=== PATIENT | female | born 1990 | race Caucasian/White ===

== ENCOUNTER → 2016-10-03 | Outpatient (CLI) | payer BC ==
--- NOTE | 2016-10-03 10:35 | US ---
EXAMINATION TYPE: US OB <= 14 wk fetus DATE OF EXAM: 10/03/2016 9:16 AM COMPARISON: NONE CLINICAL HISTORY: Confirm dates Z36. EXAM PERFORMED: OB TA and TV endovaginal scanning performed for better evaluation of the EXAM MEASUREMENTS: GESTATIONAL AGE / DATING Physician Established: ( 8weeks/ 2days) EDC: 05/13/2017 Dates by LMP: unknown Dates by First Scan: NEGATIVE NOTCHER Dates by Current Scan for: (7 weeks/4 days) EDC: 05/18/2017 MATERNAL ANATOMY Uterus: 9.6 x 7.9 x 5.9cm Right Ovary: not seen due to bowel gas Left Ovary: not seen due to bowel gas Post CDS / Adnexa: wnl Presence of free fluid: no Presence of corpus luteal cyst: not seen Presence of subchorionic bleed: no GESTATION / SURVEY CRL: 1.4cm (7 weeks/3 days) MSD: 2.4cm (7 weeks/4 days) Yolk Sac (normal less than 6mm): 0.2 Heart Rate: 0 bpm IUP: Demise Date of LMP: unknown Beta HcG (if available): not available grayscale, color Doppler imaging performed. No heart ac tivity was evident. Gestational sac somewhat irregular. IMPRESSION: Findings suggest demise, follow-up as indicated
[2016-10-03 10:37] LABS: CH 30.5; CHCM 32.9; HCT 40.6 % (34.0-46.0); HDW 2.25; HGB 13.4 gm/dL (11.4-16.0); MCH 30.8 pg (25.0-35.0); MCHC 33.1 g/dL (31.0-37.0); MCV 93.1 fL (80.0-100.0); Mean Platelet Volume 7.2; RBC 4.36 m/uL (3.80-5.40); RDW 12.2 % (11.5-15.5); WBC 7.1 k/uL (3.8-10.6)
[2016-10-03 11:00] LABS: Glucose 78 mg/dL (74-99); Non-African American GFR(MDRD) >60 (>60 ml/min/1.73 sqM)
[2016-10-03 11:29] LABS: Hepatitis B Surface Ag Index 0.09
== END | disposition home or self-care (01) ==
LOC: RADUSWWP 08:42
PROVIDERS: ATTEND Obstetrics & Gynecology
DX: Z36 Encounter for antenatal screening of mother (principal); Z34.81 Encounter for supervision of other normal pregnancy, first trimester; Z3A.08 8 weeks gestation of pregnancy
CPT/HCPCS: 36415; 76801; 76817; 82565; 82947; 84702; 85027; 86762; 86780; 86850; 86900; 86901; 87340

== ENCOUNTER → 2016-10-05 | Outpatient (CLI) | payer BC, OTHER | END | disposition home or self-care (01) | LOC: LABWHC1 12:48 | PROVIDERS: ATTEND Obstetrics & Gynecology | DX: Z34.81 Encounter for supervision of other normal pregnancy, first trimester (principal); Z3A.00 Weeks of gestation of pregnancy not specified | CPT/HCPCS: 36415; 84702 ==

== ENCOUNTER 2016-10-17 11:23 | Day surgery (SDC) | payer BC, OTHER ==
[2016-10-16 13:15] VITALS: BMI 24.0
--- NOTE | 2016-10-17 09:01 | P.HPOB ---
History of Present Illness H&P Date: 10/17/16 Chief Complaint: missed 26 year old presents for suction D&C due to missed . She had an US showing a 7 week demise and her bhcg is dropping. Review of Systems All systems: negative Constitutional: Denies chills, Denies fever Eyes: denies blurred vision, denies pain Ears, nose, mouth and throat: Denies headache, Denies sore throat Cardiovascular: Denies chest pain, Denies shortness of breath Respiratory: Denies cough Gastrointestinal: Denies abdominal pain, Denies diarrhea, Denies nausea, Denies vomiting Genitourinary: Denies dysuria, Denies hematuria Musculoskeletal: Denies myalgias Integumentary: Denies pruritus, Denies rash Neurological: Denies numbness, Denies weakness Psychiatric: Denies anxiety, Denies depression Endocrine: Denies fatigue, Denies weight change Past Medical History Past Medical History: No Reported History Additional Past Medical History / Comment(s): bipolar History of Any Multi-Drug Resistant Organisms: None Reported Past Surgical History: No Surgical Hx Reported Additional Past Surgical History / Comment(s): oral surgery Past Anesthesia/Blood Transfusion Reactions: Family History of Problems w/ Anesthesia Additional Past Anesthesia/Blood Transfusion Reaction / Comment(s): mom PONV Past Psychological History: Anxiety, Depression Smoking Status: Former smoker Past Alcohol Use History: Occasional Additional Past Alcohol Use History / Comment(s): quit smoking 09/25/15, started smoking age 17, < 1/2 PPD Past Drug Use History: None Reported - Past Family History Mother Family Medical History: No Reported History Father Family Medical History: Deep Vein Thrombosis (DVT) Medications and Allergies Home Medications Medication Instructions Recorded Confirmed Type Ibuprofen [Motrin] 600 mg PO BID 10/16/16 10/16/16 History Allergies Allergy/AdvReac Type Severity Reaction Status Date / Time No Known Allergies Allergy Verified 10/16/16 13:09 Exam Osteopathic Statement: *. No significant issues noted on an osteopathic structural exam other than those noted in the History and Physical/Consult. HEart: RRR Lungs: CTAB Abdomen: soft, nontender Extremeties: neg evan's Assessment and Plan (1) Missed Status: Acute Plan: 1. Suction D&C
[~2016-10-17 11:23] MED LIST: DEXAMETHASONE SOD PHOSPHATE 10 MG/ML 1 ML VIAL IV ONE; HYDROmorphone 1 MG/ML 1 ML SYRINGE IVP PRN; LACTATED RINGERS 1,000 ML IV SCH; MIDAZOLAM 2 MG/2 ML VIAL IV PRN; ONDANSETRON 4 MG/2 ML VIAL IVP ONE; Pre Op ABX Message 1 EACH MISC MISCELLANE ONE; SCOPOLAMINE 1.5MG/72HR PATCH TRANSDERM ONE
[2016-10-17] MEDS: LIDOCAINE 1% 20 ML VIAL (10MG/ML) FOR IV START IV ONE ×2 (11:39→11:40)
[2016-10-17] MEDS ORDERED: MIDAZOLAM 2 MG/2 ML VIAL ONE (12:54)
[2016-10-17] MEDS ORDERED: PROPOFOL 10 MG/ML 20 ML VIAL IV ONE (12:54)
[2016-10-17] MEDS ORDERED: fentaNYL (PF) 50 MCG/ML 2 ML AMP ONE (12:54)
[2016-10-17] MEDS ORDERED: LIDOCAINE 1% INJ 10MG/ML (20 ML MDV) ONE (12:54)
--- NOTE | 2016-10-17 13:15 | P.OP ---
Date of Procedure: 10/17/16 Preoperative Diagnosis: 1. Missed Postoperative Diagnosis: 1. Missed Procedure(s) Performed: Suction D&C Anesthesia: MAC Surgeon: Danielle Swan Estimated Blood Loss (ml): 300 IV fluids (ml): 300 Urine output (ml): 150 Pathology: other (Products of conception) Condition: stable Disposition: PACU Description of Procedure: Patient taken the operating room where general anesthesia was obtained without difficulty. She is prepped and draped in normal sterile fashion dorsal lithotomy position, legs placed in the Miguel stirrups. Bladder was drained of all urine. Weighted speculum placed in the vagina and the anterior lip of the cervix was grasped with a single-tooth tenaculum. Cervix was dilated to #10 Hegar dilator. A #10 curved suction curet was introduced into the uterus and her . The suction curet was passed several times to obtain a moderate amount of blood and tissue. Sharp curette was gently used to ensure all tissue had been removed. The suction curet was again passed a few more times to ensure that all blood was removed. Hemostasis was assured. All instruments were removed from the vagina. Patient tolerated the procedure well. Sponge and instrument counts correct 2. She was taken to recovery room in stable condition.
[2016-10-17] MEDS ORDERED: KETOROLAC 30 MG/ML 1 ML VIAL IVP ONE (13:30)
[2016-10-17 13:35] VITALS: TEMP 98
[2016-10-17 13:53] VITALS: RESP 18
[2016-10-17 14:28] VITALS: PULSE 70
[2016-10-17 14:48] VITALS: BP 93/65
== END 2016-10-17 14:50 | disposition home or self-care (01) ==
LOC: OR 11:23
PROVIDERS: ATTEND Obstetrics & Gynecology
DX: O02.1 Missed abortion (principal); Z79.1 Long term (current) use of non-steroidal anti-inflammatories (NSAID); Z87.891 Personal history of nicotine dependence
CPT/HCPCS: 88305; 59820; J2250; J1100; J2405; J2001; J3010; J1885; J2704

== ENCOUNTER 2018-08-20 11:02 | Outpatient (CLI) | payer BC ==
[2018-08-20 11:30] VITALS: BP 112/69; PULSE 88; RESP 18; TEMP 98.2
[2018-08-20 13:16] LABS: Appearance,Urine Clear (Clear); Bacteria,Urine Rare /hpf; Bilirubin,Urine Negative (Negative); Blood,Urine Negative (Negative); Color,Urine Light Yellow; Glucose,Urine (UA) Negative (Negative); Ketones,Urine Negative (Negative); Leukocyte Esterase,Urine Trace (Negative); Nitrite,Urine Negative (Negative); PH, Urine 7.5 (5.0-8.0); Protein,Urine Negative (Negative); RBC,Urine 1 /hpf (0-5); Specific Gravity,Urine 1.004 (1.001-1.035); Squamous Epithelial Cell,Urine 2 /hpf (0-4); Urobilinogen,Urine <2.0 mg/dL (<2.0); WBC,Urine 1 /hpf (0-5)
[2018-08-20 13:34] LABS: Basophils % (A) 0 %; Eosinophils # (A) 0.1 k/uL (0-0.7); Eosinophils % (A) 1 %; HCT 38.4 % (34.0-46.0); HGB 12.7 gm/dL (11.4-16.0); Lymphocytes # (A) 1.5 k/uL (1.0-4.8); Lymphocytes % (A) 17 %; MCH 29.9 pg (25.0-35.0); MCHC 33.1 g/dL (31.0-37.0); MCV 90.3 fL (80.0-100.0); Mean Platelet Volume 7.6; Monocytes # (A) 0.3 k/uL (0-1.0); Monocytes % (A) 4 %; Neutrophils # (A) 6.4 k/uL (1.3-7.7); Neutrophils % (A) 75 %; Platelet Count 254 k/uL (150-450); RBC 4.25 m/uL (3.80-5.40); RDW 14.1 % (11.5-15.5); WBC 8.6 k/uL (3.8-10.6)
[2018-08-20 13:47] LABS: ALT 23 U/L (9-52); AST 19 U/L (14-36); Blood Urea Nitrogen 9 mg/dL (7-17); LDH 415 U/L (313-618); Uric Acid 4.8 mg/dL (3.7-7.4)
--- NOTE | 2018-08-23 07:54 | P.MSEPDOC ---
Presenting Problems - Arrival Data Date of Arrival on Unit: 08/20/18 Time of Arrival on Unit: 11:00 Mode of Transport: Ambulatory - Complaint OB-Reason for Admission/Chief Complaint: Headache, Visual Disturbances, Dizziness Medical History - Information : 3 Para: 1 Term: 1 : 0 Abortions: Spontaneous or Elective: 1 Number of Living Children: 1 - Gestational Age Gestational Age by LEO (wks/days): 40 Weeks and 4 Days Review of Systems - Review of Systems Constitutional: No problems Breast: No problems ENT: No problems Cardiovascular: No problems Respiratory: No problems Gastrointestinal: No problems Genitourinary: No problems Musculoskeletal: No problems Neurological: Dizziness Skin: No problems Vital Signs - Temperature Temperature: 98.2 F Temperature Source: Oral - Pulse Pulse Oximetery Pulse Rate: 88 Pulse Assessment Method: Automatic Cuff - Respirations Respiratory Rate: 18 O2 Sat by Pulse Oximetry: 97 - Blood Pressure Right Arm Sitting Blood Pressure: 112/69 Blood Pressure Mean: 83 Blood Pressure Source: Automatic Cuff Medical Screen Scoring (Pre) - Cervical Exam Dilation: Exam Deferred Effacement: Exam Deferred Membranes: Intact - Uterine Contractions Frequency: > 5 minutes apart = 1 Duration: N/A Intensity: N/A - Maternal Vital Signs Maternal Temperature: N/A Maternal Blood Pressure: N/A Signs of Preeclampsia: Headache = 1, Visual Disturbance = 1, Edema of Face = 4 Maternal Respirations: N/A - Pain Assessment Pain Location and Character: Head Pain Scale Used: Numeric (1 - 10) Pain Intensity: 4 Pain Management Goal: 0 Pain Description: *Acute, Stabbing Pain Radiation Location: no Pain Frequency: Intermittent Pain Duration: 2 Pain Duration Units: Hours Pain Behavior: None Exhibited Pain Aggravating Factors: None Non-Pharmacological Interventions: Environmental Control, Reduce Environmental Stimuli - Maternal Trauma Maternal Trauma: N/A - Assessment Baseline FHR: 135 Heart Rate - NICHD Category: Category I (Normal) = 0 NST: Reactive Position: N/A Station: N/A - Total Score Total Score (Pre): 7 - Level of Risk Level of Risk: Medium (6-9) Physician Notification (Pre) - Physician Notified Physician Notified Date: 08/20/18 Physician Notified Time: 12:45 Physician/Practitioner Notifed:: Dr Valdez Spoke With: Dr Valdez New Order Received: Yes - Notification Comment Comment: 1245 Dr Valdez in department, report given ,reviewed tracing, orders received. Physician Notification (Post) - Physician Notified Physician Notified Date: 08/20/18 Physician Notified Time: 14:10 Physician/Practitioner Notified:: Dr Valdez Spoke With: Dr Valdez New Order Received: Yes Disposition - Disposition OB Disposition: Physician follow up in office, Discharge to home, Written follow up instructions reviewed Discharge Date: 08/20/18 Discharge Time: 14:20 I agree with the RN Medical Screening Exam: Yes Risk & Benefit of care provided described in d/c instruction: Yes Diagnosis: RELATED CONDITIONS, UNSPECIFIED, THIRD TRIMESTER
== END 2018-08-20 14:20 | disposition home or self-care (01) ==
LOC: FBPOP 11:02
PROVIDERS: ATTEND Obstetrics & Gynecology
DX: O26.93 Pregnancy related conditions, unspecified, third trimester (principal); Z3A.40 40 weeks gestation of pregnancy
CPT/HCPCS: 59025; 81001; 82565; 83615; 84450; 84460; 84520; 84550; 85025; 99215

== ENCOUNTER 2018-08-21 19:40 | Inpatient (IN) | payer BC ==
[2018-08-21] MEDS ORDERED: TERBUTALINE 1 MG/ML VIAL SQ PRN (20:03)
[2018-08-21] MEDS ORDERED: METHYLERGONOVINE 0.2 MG/ML 1 ML AMP IM PRN (20:03)
[2018-08-21] MEDS ORDERED: OXYTOCIN 10 UNIT/ML 1 ML VIAL IM PRN (20:03)
[2018-08-21] MEDS ORDERED: CARBOPROST TROMETHAMINE 250 MCG/ML 1 ML AMP IM PRN (20:03)
[2018-08-21] MEDS ORDERED: LIDOCAINE 0.5% (PF) 5 MG/ML (50 ML SDV) SQ PRN (20:03)
[2018-08-21] MEDS ORDERED: AMPICILLIN 2,000 MG in SODIUM CHLORIDE 0.9% 100 ML IVPB STA (20:09)
[2018-08-21] MEDS: LACTATED RINGERS 1,000 ML IV SCH ×3 (20:32→22:22)
[2018-08-21 20:56] VITALS: BMI 33.7
[2018-08-21] MEDS ORDERED: fentaNYL (PF) 50 MCG/ML 5 ML AMP ONE (21:01)
[2018-08-21] MEDS ORDERED: ROPIVACAINE 5MG/ML 20ML VIAL ONE (21:01)
[2018-08-21] MEDS ORDERED: SODIUM CHLORIDE 0.9% 100 ML BAG ONE (21:01)
[2018-08-21 22:43] LABS: RDW 14.1 % (11.5-15.5)
[2018-08-21 22:44] LABS: Basophils % (A) 0 %; Eosinophils # (A) 0.1 k/uL (0-0.7); Eosinophils % (A) 1 %; HCT 39.8 % (34.0-46.0); HGB 13.5 gm/dL (11.4-16.0); Lymphocytes # (A) 1.5 k/uL (1.0-4.8); Lymphocytes % (A) 17 %; Monocytes # (A) 0.5 k/uL (0-1.0); Monocytes % (A) 5 %; Neutrophils # (A) 6.8 k/uL (1.3-7.7); Neutrophils % (A) 75 %; Platelet Count 261 k/uL (150-450); RBC 4.37 m/uL (3.80-5.40); WBC 9.1 k/uL (3.8-10.6)
--- NOTE | 2018-08-21 23:09 | P.MSEPDOC ---
Presenting Problems - Arrival Data Date of Arrival on Unit: 08/21/18 Time of Arrival on Unit: 20:00 Mode of Transport: Wheelchair - Complaint OB-Reason for Admission/Chief Complaint: Possible Onset of Labor Comment: contractions since 1400, getting stronger, pt breathing thru them Medical History - Information : 3 Para: 1 Term: 1 : 0 Abortions: Spontaneous or Elective: 1 Number of Living Children: 1 - Gestational Age Gestational Age by LEO (wks/days): 40 Weeks and 5 Days - History Complications: GBS+ Review of Systems - Review of Systems Constitutional: No problems Breast: No problems ENT: No problems Cardiovascular: No problems Respiratory: No problems Gastrointestinal: No problems Genitourinary: No problems Musculoskeletal: No problems Neurological: No problems Skin: No problems Vital Signs - Temperature Temperature: 96.7 F Temperature Source: Temporal Artery Scan - Pulse Right Brachial Pulse Rate: 109 Pulse Assessment Method: Automatic Cuff - Respirations Respiratory Rate: 18 Oxygen Delivery Method: Room Air - Blood Pressure Right Arm Blood Pressure: 134/84 Blood Pressure Mean: 100 Blood Pressure Source: Automatic Cuff Medical Screen Scoring (Pre) - Cervical Exam Dilation: 4-7 cm = 2 Effacement: More than 50% = 2 Membranes: Intact - Uterine Contractions Frequency: > 5 minutes apart = 1 Duration: > 40 seconds = 2 Intensity: N/A - Maternal Vital Signs Maternal Temperature: N/A Maternal Blood Pressure: N/A Signs of Preeclampsia: N/A Maternal Respirations: N/A - Pain Assessment Pain Location and Character: Abdomen Pain Scale Used: Numeric (1 - 10) Pain Intensity: 7 Pain Description: *Acute, Cramping, Pressure Pain Radiation Location: none Pain Frequency: Intermittent Pain Duration: 2 Pain Duration Units: Hours Pain Behavior: Vocalization Pain Aggravating Factors: Contractions - Maternal Trauma Maternal Trauma: N/A - Assessment Baseline FHR: 130 Heart Rate - NICHD Category: Category I (Normal) = 0 NST: Reactive Position: N/A Station: N/A - Total Score Total Score (Pre): 7 - Level of Risk Level of Risk: Medium (6-9) Physician Notification (Pre) - Physician Notified Physician Notified Date: 08/21/18 Physician Notified Time: 20:03 Physician/Practitioner Notifed:: Dr. Swan Spoke With: Dr. Swan New Order Received: Yes - Notification Comment Comment: admit for labor Disposition - Disposition OB Disposition: Admit, LDRP Suite I agree with the RN Medical Screening Exam: Yes Risk & Benefit of care provided described in d/c instruction: Yes Diagnosis: ENCOUNTER FOR FULL-TERM UNCOMPLICATED DELIVERY
--- NOTE | 2018-08-21 23:09 | P.HPOB ---
History of Present Illness H&P Date: 08/21/18 Chief Complaint: normal labor 28 year old presents at 40 weeks 5 days in labor. Her cervix is 5/90/-2. She is kristin irregularly. heart tones 130-135 with moderate variability and reactive. Review of Systems All systems: negative Constitutional: Denies chills, Denies fever Eyes: denies blurred vision, denies pain Ears, nose, mouth and throat: Denies headache, Denies sore throat Cardiovascular: Denies chest pain, Denies shortness of breath Respiratory: Denies cough Gastrointestinal: Denies abdominal pain, Denies diarrhea, Denies nausea, Denies vomiting Genitourinary: Denies dysuria, Denies hematuria Musculoskeletal: Denies myalgias Integumentary: Denies pruritus, Denies rash Neurological: Denies numbness, Denies weakness Psychiatric: Denies anxiety, Denies depression Endocrine: Denies fatigue, Denies weight change Past Medical History Past Medical History: No Reported History Additional Past Medical History / Comment(s): OB history: First was a vaginal delivery, 8 lbs. 3 oz. Second was a spontaneous with a D&C. This is her third . She's had care with me since 6 weeks gestation. Her blood type is B+, antibodies negative, rubella immune, RPR nonreactive, this B-, HIV nonreactive, declined quad, GBS positive. History of Any Multi-Drug Resistant Organisms: None Reported Past Surgical History: No Surgical Hx Reported Additional Past Surgical History / Comment(s): oral surgery, D&C Past Anesthesia/Blood Transfusion Reactions: Family History of Problems w/ Anesthesia Additional Past Anesthesia/Blood Transfusion Reaction / Comment(s): mom PONV Past Psychological History: Anxiety, Bipolar, Depression Smoking Status: Never smoker Past Alcohol Use History: Occasional Additional Past Alcohol Use History / Comment(s): quit smoking 09/25/15, started smoking age 17, < 1/2 PPD Past Drug Use History: None Reported - Past Family History Mother Family Medical History: No Reported History Father Family Medical History: Deep Vein Thrombosis (DVT) Medications and Allergies Home Medications Medication Instructions Recorded Confirmed Type Pnv No.95/Ferrous Fum/Folic AC 1 each PO HS 08/20/18 08/21/18 History [ Multivitamin Tablet] Sertraline [Zoloft] 50 mg PO HS 08/20/18 08/21/18 History Allergies Allergy/AdvReac Type Severity Reaction Status Date / Time No Known Allergies Allergy Verified 08/21/18 19:48 Exam Osteopathic Statement: *. No significant issues noted on an osteopathic structural exam other than those noted in the History and Physical/Consult. Vital Signs Temp Pulse Resp BP 08/21/18 20:57 96.7 F L 109 H 18 134/84 08/21/18 20:36 96.7 F L 109 H 18 134/84 Intake and Output 08/21/18 08/21/18 08/22/18 14:59 22:59 06:59 Other: Weight 92.079 kg Heart: Regular rate and rhythm Lungs: Clear to auscultation bilaterally Abdomen: Soft, nontender Extremities: Negative Homans sign Results Result Diagrams: 08/21/18 20:30 Assessment and Plan (1) Normal labor Current Visit: Yes Status: Acute Code(s): O80 - ENCOUNTER FOR FULL-TERM UNCOMPLICATED DELIVERY; Z37.9 - OUTCOME OF DELIVERY, UNSPECIFIED SNOMED Code(s ): 98747913 Plan: 1. Admit to family place 2. IV antibiotics for GBS prophylaxis 3. Expected management 4. Anticipate normal vaginal delivery
[2018-08-22] MEDS ORDERED: AMPICILLIN 1,000 MG in SODIUM CHLORIDE 0.9% 50 ML IVPB SCH ×2
[2018-08-22] MEDS: AMPICILLIN 1,000 MG in SODIUM CHLORIDE 0.9% 50 ML IVPB SCH ×2 (00:32→05:58)
[2018-08-22] MEDS ORDERED: OXYTOCIN 20 UNITS/1000 ML NS 1,000 ML IV SCH ×2 (01:30→07:00)
[2018-08-22] MEDS ORDERED: ceFAZolin IN SWFI 2 GM/20 ML SYRINGE IVP STA (05:32)
[2018-08-22] MEDS ORDERED: CITRIC ACID-SODIUM CITRATE 15 ML CUP PO ONE (05:33)
[2018-08-22] MEDS: LACTATED RINGERS 1,000 ML IV SCH (05:39)
[2018-08-22] MEDS ORDERED: OXYTOCIN 10 UNIT/ML 1 ML VIAL ONE (06:03)
[2018-08-22] MEDS ORDERED: MORPHINE SULFATE (PF) 0.3 MG/0.3 ML SYR ONE (06:03)
[2018-08-22] MEDS ORDERED: LACTATED RINGERS 1,000 ML BAG IV ONE (06:03)
[2018-08-22] MEDS ORDERED: ONDANSETRON 4 MG/2 ML VIAL ONE (06:03)
[2018-08-22] MEDS ORDERED: KETOROLAC 30 MG/ML 1 ML VIAL ONE (06:03)
[2018-08-22] MEDS ORDERED: NALBUPHINE 10 MG/ML VIAL (10ML MDV) ONE (06:03)
[2018-08-22] MEDS ORDERED: ePHEDrine SULFATE/0.9% NACL/PF 50 MG/5 ML SYRINGE IV ONE (06:03)
[2018-08-22] MEDS ORDERED: NALOXONE 0.4 MG/ML 1 ML VIAL IV PRN ×2 (06:29→06:47)
[2018-08-22] MEDS ORDERED: MORPHINE SULFATE 2 MG/ML SYRINGE IVP PRN (06:29)
[2018-08-22] MEDS ORDERED: diphenhydrAMINE 50 MG/ML 1 ML VIAL IVP PRN ×3 (06:29→06:47)
[2018-08-22] MEDS ORDERED: NALBUPHINE 10 MG/ML VIAL (10ML MDV) IV PRN (06:29)
[2018-08-22] MEDS ORDERED: LANOLIN CREAM 5 GM TUBE TOPICAL PRN (06:47)
[2018-08-22] MEDS ORDERED: SIMETHICONE 80 MG CHEWABLE PO PRN (06:47)
[2018-08-22] MEDS ORDERED: diphenhydrAMINE 50 MG CAP PO PRN (06:47)
[2018-08-22] MEDS ORDERED: ACETAMINOPHEN TAB 325 MG TAB PO PRN (06:47)
[2018-08-22] MEDS ORDERED: ONDANSETRON 4 MG/2 ML VIAL IVP PRN (06:47)
[2018-08-22] MEDS ORDERED: ZOLPIDEM 5 MG TAB PO PRN (06:47)
[2018-08-22] MEDS ORDERED: METOCLOPRAMIDE 5 MG/ML 2 ML VIAL IVP PRN (06:47)
--- NOTE | 2018-08-22 06:55 | P.OP ---
Date of Procedure: 08/22/18 Preoperative Diagnosis: 1. at 40 weeks and 5 days 2. Arrest of descent Postoperative Diagnosis: 1. at 40 weeks and 5 days 2. Arrest of descent 3. Fetus in the LOP position Procedure(s) Performed: Primary low transverse Anesthesia: spinal Surgeon: Danielle Swan Tax Accounting Manager #1: Cheryl Cochran Estimated Blood Loss (ml): 600 IV fluids (ml): 900 Urine output (ml): 100 Pathology: none sent Condition: stable Disposition: floor Indications for Procedure: 28-year-old presented at 40 weeks and 5 days in active labor. Her cervix was 5 cm dilated, 90% effaced, -2 station. Amniotomy was performed at 2259, clear fluid noted. She was 8 cm at this time. She did not make cervical climate change analyst the next hour or so Pitocin augmentation was started. When she was complete she labored down for a little while and then epidural was should also she could feel in order to push. She pushed for over 1 hour in did not move the baby from a -1 position. Informed consent was obtained and section was called. Operative Findings: Viable female, Apgars 8, 9, weight 8 lbs. 10 oz. Normal uterus, tubes, ovaries. Description of Procedure: Patient was taken to the operating room where spinal anesthesia was found be adequate. She was prepped and draped in normal sterile fashion in dorsal supine position with a leftward tilt. Pfannenstiel skin incision was made the scalpel and carried through to the underlying layer of fascia with the scalpel. Fascia was incised in midline and carried bilaterally with the Murillo scissors. The superior aspect of the fascial incision was grasped with Nuvia clamps elevated and the underlying rectus muscles dissected off with the Murillo's. Attention was then turned to inferior aspect of same incision which in a similar fashion was grasped tented up and the underlying rectus muscles dissected off with the Murillo's. The rectus muscles were the midline and the peritoneum was identified tented up and entered sharply with the scalpel. The incision was extended superiorly and inferiorly with good visualization of the bladder. The bladder blade was inserted and the vesicouterine peritoneum was incised the Metzenbaums then carried bilaterally and bladder flap created digitally. A low transverse incision was then made on the uterus with the scalpel. This was carried bilaterally and digital manner. Infant's head delivered atraumatically, nose and mouth bulb suctioned, cord clamped and cut, infant handed off to waiting nurses. Apgars 8,9, weight 8 lbs. 10 oz. Placenta delivered manually, intact with three-vessel cord. The uterus is exteriorized and cleared of all clots and debris. The uterine incision was closed with 0 Vicryl in a running locked fashion. Second layer of the same sutures used in imbricating fashion to obtain excellent hemostasis. Both ovaries and tubes appeared normal. The uterus was placed back into the abdomen. The peritoneum was reapproximated using 2-0 Vicryl in a running fashion. The muscles were reapproximated using 2-0 Vicryl in interrupted fashion. The fascia was reapproximated using 0 Vicryl in a running fashion. The subcutaneous tissues closed with 3-0 Vicryl running fashion. The skin was closed greta. Patient tolerated the procedure well, sponge and instrument counts were correct times 2 and she was taken to the recovery room in stable condition.
[2018-08-22] MEDS: SENNOSIDES-DOCUSATE SODIUM 1 EACH TAB PO SCH (08:24)
[2018-08-22] MEDS: KETOROLAC 30 MG/ML 1 ML VIAL IVP PRN ×2 (16:03→22:11)
[2018-08-22] MEDS: diphenhydrAMINE 25 MG CAP PO PRN (23:04)
[2018-08-23] MEDS: LACTATED RINGERS 1,000 ML IV SCH (00:15)
[2018-08-23] MEDS: SENNOSIDES-DOCUSATE SODIUM 1 EACH TAB PO SCH ×3 (00:15→21:13)
[2018-08-23] MEDS: KETOROLAC 30 MG/ML 1 ML VIAL IVP PRN (06:00)
--- NOTE | 2018-08-23 06:17 | P.PN ---
Progress Note - Text Progress Note Date: 08/23/18 Spinal rounds Patient evaluated at the bedside denies any complaints of headaches Spinal site looks clean dry and intact Normal nausea or vomiting pruritus is minimal Vitals within normal limits No obvious complications from Duramorph spinal Anesthesia signing off
[2018-08-23 07:05] LABS: Basophils % (A) 0 %; Eosinophils # (A) 0.1 k/uL (0-0.7); Eosinophils % (A) 1 %; HCT 31.9 % (34.0-46.0); HGB 10.7 gm/dL (11.4-16.0); Lymphocytes # (A) 1.4 k/uL (1.0-4.8); Lymphocytes % (A) 12 %; MCH 31.2 pg (25.0-35.0); MCHC 33.5 g/dL (31.0-37.0); Mean Platelet Volume 7.7; Monocytes # (A) 0.5 k/uL (0-1.0); Monocytes % (A) 4 %; Neutrophils % (A) 82 %; Platelet Count 243 k/uL (150-450); RBC 3.43 m/uL (3.80-5.40); RDW 14.2 % (11.5-15.5); WBC 12.2 k/uL (3.8-10.6)
--- NOTE | 2018-08-23 08:42 | P.PNOBGPC ---
Subjective - Subjective Principal diagnosis: S/P primary low transverse Interval history: Pt seen and examined. Denies N/V, F/C, CP, SOB, calf pain. Patient reports: Reports appetite normal, Reports voiding normally, Reports pain well controlled, Reports ambulating normally Hitchcock: doing well Objective - Vital Signs Latest vital signs: Vital Signs Temp Pulse Resp BP Pulse Ox 08/23/18 08:00 98.9 F 107 H 18 120/73 97 08/23/18 06:00 15 08/23/18 04:00 98.1 F 115 H 15 113/65 98 08/23/18 02:00 90 15 98 08/23/18 00:00 98 F 103 H 15 107/60 08/22/18 22:00 15 08/22/18 20:00 98 F 105 H 15 110/66 98 08/22/18 19:00 15 08/22/18 16:00 98.1 F 106 H 16 110/66 96 08/22/18 15:00 16 97 08/22/18 13:00 16 97 08/22/18 12:00 97.8 F 112 H 16 118/75 08/22/18 11:00 16 08/22/18 08:53 97.8 F 103 H 16 119/66 95 Intake and Output 08/22/18 08/23/18 08/23/18 22:59 06:59 14:59 Output Total 450 600 Balance -450 -600 Output: Urine 450 600 Other: # Voids 1 1 1 - Exam Lungs: bilateral: normal Chest: Normal S1, Normal S2 Extremities: Present: normal Abdomen: Present: normal appearance, soft. Absent: distention, tenderness Incision: Present: normal, dry, intact Uterus: Present: normal, firm - Labs Labs: Abnormal Lab Results - Last 24 Hours (Table) 08/23/18 Range/Units 06:40 WBC 12.2 H (3.8-10.6) k/uL RBC 3.43 L (3.80-5.40) m/uL Hgb 10.7 L (11.4-16.0) gm/dL Hct 31.9 L (34.0-46.0) % Neutrophils # 10.0 H (1.3-7.7) k/uL Assessment and Plan (1) Normal labor Current Visit: Yes Status: Resolved Code(s): O80 - ENCOUNTER FOR FULL-TERM UNCOMPLICATED DELIVERY; Z37.9 - OUTCOME OF DELIVERY, UNSPECIFIED SNOMED Code(s ): 94286706 (2) Status post primary low transverse section Current Visit: Yes Status: Acute Code(s): Z98.891 - HISTORY OF UTERINE SCAR FROM PREVIOUS SURGERY SNOMED Code(s): 743253860 Plan: 1. increase ambulation 2. po pain meds
[2018-08-23] MEDS: HYDROcodone/APAP 7.5-325MG 1 EACH TAB PO PRN ×3 (09:02→21:08)
[2018-08-23] MEDS: IBUPROFEN 600 MG TAB PO PRN ×2 (12:10→18:25)
[2018-08-23] MEDS: diphenhydrAMINE 25 MG CAP PO PRN (21:12)
[2018-08-24] MEDS: IBUPROFEN 600 MG TAB PO PRN ×3 (00:04→11:49)
[2018-08-24] MEDS: HYDROcodone/APAP 7.5-325MG 1 EACH TAB PO PRN ×2 (03:06→09:28)
[2018-08-24] MEDS: SENNOSIDES-DOCUSATE SODIUM 1 EACH TAB PO SCH (08:10)
--- NOTE | 2018-08-24 08:56 | P.DS ---
Providers Date of admission: 08/21/18 19:59 Expected date of discharge: 08/24/18 Attending physician: Danielle Swan Primary care physician: Stated None - Discharge Diagnosis(es) (1) Normal labor Current Visit: Yes Status: Resolved (2) Status post primary low transverse section Current Visit: Yes Status: Acute Hospital Course: Pt presented in active labor. She underwent a primary low transverse for arrest of descent. She will be discharged home POD #2 in stable condition to follow up with me in 1 week. Plan - Discharge Summary New Discharge Prescriptions: New HYDROcodone/APAP 7.5-325MG [[place] 7.5-325] 1 each PO Q4-6H PRN #18 tab PRN Reason: Severe Pain Ibuprofen [Motrin] 600 mg PO Q6HR PRN #30 tab PRN Reason: Mild Pain Or Fever >= 100.5 No Action Sertraline [Zoloft] 50 mg PO HS Pnv No.95/Ferrous Fum/Folic AC [ Multivitamin Tablet] 1 each PO HS Discharge Medication List Pnv No.95/Ferrous Fum/Folic AC [ Multivitamin Tablet] 1 each PO HS 08/20 [History] Sertraline [Zoloft] 50 mg PO HS 08/20/18 [History] HYDROcodone/APAP 7.5-325MG [[place] 7.5-325] 1 each PO Q4-6H PRN #18 tab 08/24/18 [Rx] Ibuprofen [Motrin] 600 mg PO Q6HR PRN #30 tab 08/24/18 [Rx] Follow up Appointment(s)/Referral(s): Danielle Swan DO [Doctor of Osteopathic Medicine] - 1 Week Discharge Disposition: HOME SELF-CARE
[2018-08-24 09:47] VITALS: BP 128/77; PULSE 101; RESP 18; TEMP 98
--- NOTE | 2018-08-27 15:15 | CDI ---
Documentation Clarification Form Date: 08/27/2018 3:04:01 PM From: AYO Gan; Tiffanie Carmona Qa Tech Phone: If you have a question about this query, please contact Tiffanie Carmona Qa Tech at [phone] between 8am and 5pm. Admit Date: 08/21/2018 7:59:00 PM Patient Name: Mariah Daly Visit Number: [id number] Discharge Date: 08/24/2018 12:30:00 PM ATTENTION: The Clinical Documentation Specialists (CDI) and [facility] Coding Staff appreciate your assistance in clarifying documentation. Please respond to the clarification below the line at the bottom and electronically sign. The CDI & [facility] Coding staff will review the response and follow-up if needed. Please note: Queries are made part of the Legal Health Record. If you have any questions, please contact the author of this message via ITS. Dr. Danielle Swan Per your progress notes/operative note, a was performed on 08/22/2018. History/Risk Factors: 40 weeks gestational age Clinical Indicators: After complete cervical dilation, she pushed for over 1 hour without moving from 1 position. Indications for include arrest of descent and fetus in LOP position. Treatment: In order to capture severity of condition and code the appropriate reason for the procedure; could you please specify the indication for the : Obstructed labor due to: Breech presentation -Complete -Incomplete Brow presentation Buttock presentation Compound presentation Contracted pelvis Deep transverse arrest Deformed pelvis Dystocia due to (please specify): Face presentation incomplete rotation of head (persistent occiput posterior) Fetopelvic disproportion Footling presentation Impacted Shoulders Labor was prolonged due to failure to progress, was high risk for obstruction Planned Other; please specify Unable to determine _The indication for was Fetopelvic disproportion due to Left Occiput Posterior (LOP) position of the fetus. MTDD
== END 2018-08-24 12:30 | disposition home or self-care (01) | DRG 788 ==
LOC: FBPOP 19:40 → 4FBP 19:59
PROVIDERS: ADMIT Obstetrics & Gynecology; ATTEND Obstetrics & Gynecology
PROC: 3E0R3NZ Introduction of Analgesics, Hypnotics, Sedatives into Spinal Canal, Percutaneous Approach (ICD-10-PCS; principal; 2018-08-21)
PROC: 10907ZC Drainage of Amniotic Fluid, Therapeutic from Products of Conception, Via Natural or Artificial Opening (ICD-10-PCS; principal; 2018-08-21)
PROC: 10D00Z1 Extraction of Products of Conception, Low, Open Approach (ICD-10-PCS; principal; 2018-08-21)
PROC: 00HU33Z Insertion of Infusion Device into Spinal Canal, Percutaneous Approach (ICD-10-PCS; principal; 2018-08-21)
DX: O33.9 Maternal care for disproportion, unspecified (principal); O32.8XX0 Maternal care for other malpresentation of fetus, not applicable or unspecified; Z3A.40 40 weeks gestation of pregnancy; Z37.0 Single live birth; O99.344 Other mental disorders complicating childbirth; F31.9 Bipolar disorder, unspecified; F41.9 Anxiety disorder, unspecified; L29.9 Pruritus, unspecified; O99.824 Streptococcus B carrier state complicating childbirth
CPT/HCPCS: 59025; 85025; 86850; 86900; 86901; 99213

== ENCOUNTER → 2024-11-29 | Outpatient (CLI) | payer OTHER ==
[2024-11-29 14:39] LABS: ALT 22 U/L (8-44); AST 31 U/L (13-35); Albumin 4.5 g/dL (3.8-4.9); Albumin/Globulin Ratio 1.73 Ratio (1.60-3.17); Alkaline Phosphatase 50 U/L (41-126); BUN/Creat Ratio 23.43 Ratio (12.00-20.00); Blood Urea Nitrogen 16.4 mg/dL (9.0-27.0); Calcium 9.6 mg/dL (8.7-10.3); Carbon Dioxide 23.8 mmol/L (21.6-31.8); Chloride 105 mmol/L (96-109); Chol/HDL Ratio 2.49 Ratio; Globulin 2.6 g/dL (1.6-3.3); Glucose 98 mg/dL (70-110); LDL Cholesterol,Calculated 69.5 mg/dL (0.0-131.0); Potassium 4.5 mmol/L (3.5-5.5); Sodium 140 mmol/L (135-145); Total Bilirubin <0.2 mg/dL (0.3-1.2); Total Protein 7.1 g/dL (6.2-8.2)
[2024-11-29 15:51] LABS: Basophils # (A) 0.05 X 10*3/uL (0.00-0.10); Basophils % (A) 0.9 %; Eosinophils # (A) 0.06 X 10*3/uL (0.04-0.35); Eosinophils % (A) 1.1 %; HCT 40.8 % (37.2-46.3); HGB 12.8 g/dL (12.0-15.0); Lymphocytes # (A) 1.55 X 10*3/uL (0.90-5.00); Lymphocytes % (A) 27.7 %; MCH 29.2 pg (27.0-32.0); MCHC 31.4 g/dL (32.0-37.0); MCV 92.9 FL (80.0-97.0); Monocytes # (A) 0.32 X 10*3/uL (0.20-1.00); Monocytes % (A) 5.7 %; NRBC Per 100 WBC 0.02 X 10*3/uL (0.00-0.01); Neutrophils % (A) 64.4 %; Platelet Count 309 X 10*3/uL (140-440); RBC 4.39 X 10*6/uL (4.10-5.20); RBC Morphology Normal (Normal); RDW 12.3 % (11.5-14.5); WBC 5.59 X 10*3/uL (4.50-10.00)
== END | disposition home or self-care (01) ==
LOC: LABWHC1 10:36
PROVIDERS: ATTEND Physician Assistant
DX: Z00.00 Encounter for general adult medical examination without abnormal findings (principal); Z13.228 Encounter for screening for other metabolic disorders; Z13.220 Encounter for screening for lipoid disorders; E55.9 Vitamin D deficiency, unspecified; Z79.899 Other long term (current) drug therapy
CPT/HCPCS: 36415; 80053; 80061; 82306; 84443; 85025